=== PATIENT | male | born 1965 | race Caucasian/White ===

== ENCOUNTER 2017-10-08 13:40 | Inpatient (IN) | payer BC, MEDICAID ==
[~2017-10-08] VITALS: Ht 172.7 cm; Wt 101.6 kg
[~2017-10-08 13:40] MED LIST: NEBI5TAB3 PO; VALS1TAB40 PO
[2017-10-08 13:45] VITALS: BP_SYST 109
--- NOTE | 2017-10-08 13:52 | NUR ---
Pt placed to ER bed 8.
--- NOTE | 2017-10-08 13:55 | NUR ---
Pt AAOx4 ambulated into ED c/o pain and swelling to R hand s/p laceration on 3rd R digit while fixing car engine x2 days ago. Erythema and swelling noted to R hand. Pt denies taking any medications today. No other injuries/complaints per pt/noted. Will continue to monitor.
--- NOTE | 2017-10-08 13:58 | NUR ---
ER Dr. Salas at bedside examining patient.
[2017-10-08] MEDS ORDERED: cefTRIAXone 1 GM IVPB PREMIX 50 ML IV ONE (14:15)
[2017-10-08] MEDS ORDERED: VANCOMYCIN HCL 1,000 MG in NS 250 ML IV ONE (14:15)
[2017-10-08] MEDS ORDERED: VANCOMYCIN HCL 1000 MG/VIAL IV ONE (14:27)
[2017-10-08 14:46] LABS: BASOPHILS # (AUTO) 0.1 K/uL (0.0-0.2); BASOPHILS % (AUTO) 1.9 % (0.0-2.0); EOSINOPHILS # (AUTO) 0.2 K/uL (0.0-0.4); EOSINOPHILS % (AUTO) 3.6 % (0.0-4.0); HEMATOCRIT 42.6 % (36-54); HEMOGLOBIN 14.2 g/dL (14.0-18.0); LYMPHOCYTES % (AUTO) 31.7 % (20.5-51.5); MEAN CORPUSCULAR HEMOGLOBIN 31 pg (27-31); MEAN CORPUSCULAR HGB CONC 33 % (32-36); MEAN CORPUSCULAR VOLUME 92 fL (79.0-98.0); MONOCYTES # (AUTO) 1.1 K/uL (0.0-1.0); NEUTROPHILS % (AUTO) 45.8 % (40.0-70.0); RED BLOOD CELL COUNT(AUTO) 4.63 MIL/uL (4.2-6.2); RED CELL DISTRIBUTION WIDTH 15.8 % (9.0-15.0); WHITE BLOOD COUNT (AUTO) 6.4 K/uL (4.8-10.8)
[2017-10-08 14:51] LABS: PLATELET COUNT (AUTO) 250 K/uL (130-430)
[2017-10-08 14:55] LABS: CALCIUM 8.6 mg/dL (8.4-11.0); CREATININE 0.77 mg/dL (0.55-1.30); POTASSIUM 3.7 mmol/L (3.5-5.1)
[2017-10-08 15:02] LABS: ALBUMIN 3.4 g/dL (3.4-4.8); TOTAL BILIRUBIN 0.4 mg/dL (0.0-1.0)
--- NOTE | 2017-10-08 15:15 | NUR ---
Assumed care of patient for lunch relief
--- NOTE | 2017-10-08 16:20 | NUR ---
Patient will be admitted to care of [facility]. Admitted to Medsurg unit. Will go to room 117A. Belongings list completed. Summary report printed. Report will be given at bedside.
--- NOTE | 2017-10-08 16:24 | NUR ---
ADMISSION NOTE Received patient from ER via jacoby, received report from Graeme PERSON. Patient admitted with diagnosis of cellulitis. Patient oriented to hospital routine, call light, toileting and safety-patient verbalized understanding.
[2017-10-08 16:37] VITALS: BP_SYST 121
[2017-10-08] MEDS ORDERED: ceFAZolin SODIUM 1 GM in D5W 50 ML IV ONE (16:45)
--- NOTE | 2017-10-08 17:03 | NUR ---
CONSULTATION PAGED REASON FOR CONSULTATION: Cellulites PERSON NOTIFIED: Dr. Watson CONSULTING PHYSICIAN: Dr. Watson ORDERING PHYSICIAN: Dr. Nima Watson on the unit and was made aware of consult.
--- NOTE | 2017-10-08 17:28 | NUR ---
Assessment performed at this time. Dinner tray provided. Discussed plan of care with patient. Patient verbalized understanding.
--- NOTE | 2017-10-08 18:08 | NUR ---
Closing Note Patient walking around in room. No complaints of pain or difficulty breathing on room air. All needs met throughout shift. Will endorse plan of care to noc shift. Call light in reach, safety precautions in order and bed alarm refused by patient.
--- NOTE | 2017-10-08 19:15 | NUR ---
OPENING NOTE Received report from RAZA Byrnes. Patient resting in bed with eyes closed. Breathing unlabored and even on room air. No signs of distress, no needs at this time. Fall and safety precautions in place. Bed in lowest position, brake on, call light within reach. IV abx infusing as ordered. Will continue to monitor.
[2017-10-08 20:57] VITALS: BP_SYST 140
--- NOTE | 2017-10-08 21:00 | NUR ---
Patient placed on 2L oxygen via NC due to patient oxygen saturation at 89% on room air. Pt currently sating at 94% on 2L. Will continue to monitor.
[2017-10-08] MEDS: ceFAZolin SODIUM 1 GM in D5W 50 ML IV SCH (21:04)
--- NOTE | 2017-10-08 21:06 | NUR ---
IV abx hung
[2017-10-08] MEDS ORDERED: HYDROcodone/ACETAMIN 5-325 MG TAB (NORCO/ VICODIN) PO PRN (22:45)
[2017-10-08] MEDS ORDERED: LORazepam 2 MG/ML VIAL IVP PRN (22:45)
[2017-10-08] MEDS ORDERED: ONDANSETRON HCL 4 MG/2 ML VIAL IVP PRN (22:45)
--- NOTE | 2017-10-08 23:37 | NUR ---
Patient resting in bed with eyes closed. Breathing unlabored and even on room air. No signs of distress, no needs at this time. Fall and safety precautions in place. Bed in lowest position, brake on, call light within reach. Will continue to monitor Addendum: 10/09/17 at 0150 by Lupe Schneider RN Pt on 2L oxygen via NC, not RA
[2017-10-09 01:48] VITALS: BP_SYST 138
--- NOTE | 2017-10-09 01:49 | NUR ---
Patient resting in bed with eyes closed. Breathing unlabored and even on 2L oxygen via NC. No signs of distress, no needs at this time. Fall and safety precautions in place. Bed in lowest position, brake on, call light within reach. Will continue to monitor
[2017-10-09] MEDS: VANCOMYCIN HCL 1,500 MG in NS 250 ML IV SCH ×2 (02:33→15:44)
--- NOTE | 2017-10-09 02:35 | NUR ---
IV abx hung
[2017-10-09] MEDS: HYDROcodone/ACETAMIN 10-325 MG TAB PO PRN ×3 (04:42→19:40)
--- NOTE | 2017-10-09 04:43 | NUR ---
Pt c/o pain 10/10. Administered PRN norco PO as ordered. Educated pt on safety and side effects. Encouraged call for assist.
[2017-10-09] MEDS: ceFAZolin SODIUM 1 GM in D5W 50 ML IV SCH ×3 (05:08→22:52)
[2017-10-09] MEDS: NORMAL SALINE 5 ML DISP.SYRIN IVF SCH ×3 (05:12→22:51)
--- NOTE | 2017-10-09 05:12 | NUR ---
IV abx hung
[2017-10-09] MEDS ORDERED: NORMAL SALINE 5 ML DISP.SYRIN IVF SCH (06:00)
[2017-10-09 06:41] LABS: BASOPHILS # (AUTO) 0.1 K/uL (0.0-0.2); BASOPHILS % (AUTO) 1.9 % (0.0-2.0); EOSINOPHILS # (AUTO) 0.3 K/uL (0.0-0.4); EOSINOPHILS % (AUTO) 5.8 % (0.0-4.0); HEMATOCRIT 42.4 % (36-54); HEMOGLOBIN 14.3 g/dL (14.0-18.0); LYMPHOCYTES # (AUTO) 1.7 K/uL (1.0-5.5); LYMPHOCYTES % (AUTO) 28.8 % (20.5-51.5); MEAN CORPUSCULAR HEMOGLOBIN 31 pg (27-31); MEAN CORPUSCULAR HGB CONC 34 % (32-36); MEAN CORPUSCULAR VOLUME 92 fL (79.0-98.0); MONOCYTES % (AUTO) 16.9 % (1.7-9.3); NEUTROPHILS # (AUTO) 2.8 K/uL (1.8-7.7); NEUTROPHILS % (AUTO) 46.6 % (40.0-70.0); PLATELET COUNT (AUTO) 253 K/uL (130-430); RED BLOOD CELL COUNT(AUTO) 4.64 MIL/uL (4.2-6.2); RED CELL DISTRIBUTION WIDTH 15.6 % (9.0-15.0); WHITE BLOOD COUNT (AUTO) 5.9 K/uL (4.8-10.8)
[2017-10-09 06:52] LABS: C-REACTIVE PROTEIN QUANT 3.9 mg/dL (0-0.5); CALCIUM 8.4 mg/dL (8.4-11.0); CREATININE 0.79 mg/dL (0.55-1.30); POTASSIUM 3.8 mmol/L (3.5-5.1)
--- NOTE | 2017-10-09 06:52 | NUR ---
CLOSING NOTE Patient resting in bed awake, alert, oriented x4. Breathing unlabored and even on 2L oxygen via NC. No signs of distress, no needs at this time. All needs met throughout shift. Fall and safety precautions in place throughout shift. Bed in lowest position, brake on, call light within reach. Will endorse cares to day shift nurse.
[2017-10-09 08:00] VITALS: BP_SYST 157
--- NOTE | 2017-10-09 08:00 | NUR ---
Opening Note received report from brick pitcher RN, pt resting in bed, A&Ox4, respirations even and unlabored on room air, O2sat 95%, pain controlled at this time, IV site clean, dry, and intact, pt educated on use of call light and asked to call for assistance, pt verbalized understanding, call light in reach, pt educated on use of bed alarm for pt safety, pt refusing bed alarm at this time, bed in low position, fall and aspiration precautions in place.
[2017-10-09 08:18] LABS: ERYTHROCYTE SEDIMENTATION RATE 7 MM/HR (0-15)
[2017-10-09] MEDS: NEBIVOLOL HCL 5 MG TABLET PO SCH (08:59)
--- NOTE | 2017-10-09 08:59 | NUR ---
Pain Management/Medication pt complaint of pain 10/10 to right hand, pt educated on use and side effects of PRN pain medications and all medications, pt verbalized understanding, tolerated medication administration well, no additional needs at this time, fall and aspiration precautions in place.
[2017-10-09] MEDS ORDERED: VALSARTAN PO SCH (09:00)
[2017-10-09] MEDS ORDERED: HYDROCHLOROTHIAZIDE PO SCH (09:00)
[2017-10-09] MEDS: HYDROCHLOROTHIAZIDE 12.5 MG CAPSULE (HCTZ) PO SCH (09:00)
[2017-10-09] MEDS: VALSARTAN 160 MG TABLET (DIOVAN) PO SCH (09:00)
[2017-10-09] MEDS ORDERED: [UNRECOGNIZED DRUG - OTHER] PO SCH (09:00)
--- NOTE | 2017-10-09 10:50 | NUR ---
RN Rounds pt resting in bed, pt reports pain controlled at this time, respirations even and unlabored on room air, no additional needs, fall and aspiration precautions in place.
--- NOTE | 2017-10-09 12:40 | NUR ---
RN Rounds pt resting in bed, respirations even and unlabored on room air, pain controlled at this time, fall and aspiration precautions in place.
[2017-10-09 12:49] VITALS: BP_SYST 149
--- NOTE | 2017-10-09 13:50 | NUR ---
Spoke with MD Spoke with Dr. Herring, informed MD that pt is requesting to go home, no orders for discharge per MD, pt informed of plan of care, pt verbalized understanding.
--- NOTE | 2017-10-09 14:36 | NUR ---
Medication pt educated on medication use and side effects, pt verbalized understanding, tolerating medication administration well, no redness or swelling noted at IV site, no additional needs at this time, fall and aspiration precautions in place.
--- NOTE | 2017-10-09 15:47 | NUR ---
Medication pt educated on medication use and side effects, pt verbalized understanding, tolerated medication administration well, no additional needs at this time, fall and aspiration precautions in place.
[2017-10-09 16:39] VITALS: BP_SYST 146
--- NOTE | 2017-10-09 17:10 | NUR ---
RN Rounds pt resting in bed, respirations even and unlabored, no acute distress noted, pt states that pain is controlled at this time, fall and aspiration precautions in place.
--- NOTE | 2017-10-09 19:05 | NUR ---
Closing note pt resting in bed, A&Ox4, respirations even and unlabored on room air, IV site clean, dry, and intact, pt complaint of pain at this time, fast food shift supervisor RN to give pain medications, pt educated on use of call light and asked to call for assistance, pt verbalized understanding, call light in reach, pt educted on use of bed alarm for pt safety, pt refusing bed alarm at this time, bed in low position, fall and aspiration precautions in place, care endorsed to fast food shift supervisor RN.
--- NOTE | 2017-10-09 19:10 | NUR ---
OPENING NOTE Received report from RAZA Cintron. Patient resting in bed awake, alert, oriented x4. Breathing unlabored and even on room air. Fall and safety precautions in place. Bed in lowest position, brake on, call light within reach. IV site saline locked. No visual improvement of patient's right hand redness and swelling. Pt c/o pain at this time. Will continue to monitor.
--- NOTE | 2017-10-09 19:40 | NUR ---
Pt c/o pain 12/10. Administered PRN Trent 10-325 PO as ordered. Educated pt on safety and side effects. Encouraged call for assist.
[2017-10-09 20:09] VITALS: BP_SYST 149
--- NOTE | 2017-10-09 20:17 | NUR ---
Patient's sister Carmen called. Gave her an update on patient's current status. Transferred call to patient.
[2017-10-09] MEDS: ACETAMINOPHEN 325 MG TABLET PO PRN (22:57)
--- NOTE | 2017-10-09 23:04 | NUR ---
IV abx hung. Pt c/o pain. Administered PRN tylenol PO as ordered.
[2017-10-10 00:50] VITALS: BP_SYST 153
--- NOTE | 2017-10-10 01:03 | NUR ---
Patient resting in bed with eyes closed. Breathing unlabored and even on room air. Fall and safety precautions in place. Bed in lowest position, brake on, call light within reach. Will continue to monitor.
[2017-10-10] MEDS: VANCOMYCIN HCL 1,500 MG in NS 250 ML IV SCH ×2 (03:22→14:36)
--- NOTE | 2017-10-10 03:26 | NUR ---
IV abx hung
[2017-10-10] MEDS: ceFAZolin SODIUM 1 GM in D5W 50 ML IV SCH ×2 (05:26→13:12)
[2017-10-10] MEDS: NORMAL SALINE 5 ML DISP.SYRIN IVF SCH ×2 (05:28→13:14)
--- NOTE | 2017-10-10 05:28 | NUR ---
IV abx hung
--- NOTE | 2017-10-10 05:34 | NUR ---
MRSA chanell nares swab collected, per order, per Dr. Hall's notes. Sent to lab.
[2017-10-10 06:46] LABS: CALCIUM 8.6 mg/dL (8.4-11.0); CREATININE 0.96 mg/dL (0.55-1.30); POTASSIUM 3.5 mmol/L (3.5-5.1)
[2017-10-10 07:04] LABS: HEMOGLOBIN 14.7 g/dL (14.0-18.0)
--- NOTE | 2017-10-10 07:08 | NUR ---
CLOSING NOTE Patient resting in bed awake, alert, oriented x4. Breathing unlabored and even on room air. No signs of distress, no needs at this time. All needs met throughout shift. Fall and safety precautions in place throughout shift. Bed in lowest position, brake on, call light within reach. IV site saline locked. Endorsed care to day shift nurseTiesha.
[2017-10-10 07:17] LABS: HEMATOCRIT 43.4 % (36-54); MEAN CORPUSCULAR HEMOGLOBIN 31 pg (27-31); MEAN CORPUSCULAR HGB CONC 34 % (32-36); MEAN CORPUSCULAR VOLUME 90 fL (79.0-98.0); PLATELET COUNT (AUTO) 266 K/uL (130-430); RED CELL DISTRIBUTION WIDTH 15.1 % (9.0-15.0); WHITE BLOOD COUNT (AUTO) 7.9 K/uL (4.8-10.8)
[2017-10-10 07:20] LABS: C-REACTIVE PROTEIN QUANT 14.4 mg/dL (0-0.5)
--- NOTE | 2017-10-10 07:55 | NUR ---
Initial note Pt sitting up in bed, awake, alert and oriented x4, no s/s of acute distress or pain, vss. Breathing even and unlabored on room air. IV to lac 20 g intact, saline locked. Swelling and redness noted to right hand, centered around right 3rd finger and thumb, warm to touch. Right foot swelling and redness noted, centered around big toe. Pt states he would like pain medication, He states " Tylenol will do because [place] is not helping the pain" will notify MD when he make rounds. Plan of care discussed, safety precautions in place, call light within reach, will follow up
[2017-10-10 07:58] LABS: ERYTHROCYTE SEDIMENTATION RATE 10 MM/HR (0-15)
[2017-10-10 08:00] VITALS: BP_SYST 149
[2017-10-10] MEDS: VALSARTAN 160 MG TABLET (DIOVAN) PO SCH (08:11)
[2017-10-10] MEDS: HYDROCHLOROTHIAZIDE 12.5 MG CAPSULE (HCTZ) PO SCH (08:11)
[2017-10-10] MEDS: ACETAMINOPHEN 325 MG TABLET PO PRN (08:12)
[2017-10-10] MEDS: NEBIVOLOL HCL 5 MG TABLET PO SCH (08:12)
[2017-10-10 09:00] LABS: BAND % (MANUAL) 5 % (0-6)
[2017-10-10 09:01] LABS: BASOPHILS % (MANUAL) 0 % (0-2); EOSINOPHILS % (MANUAL) 1 % (0-7); LYMPHOCYTES % (MANUAL) 17 % (20-46); MONOCYTES % (MANUAL) 9 % (0-11)
--- NOTE | 2017-10-10 10:00 | NUR ---
Rounds pt sitting in bed, watching tv, no s/s of acute distress or pain at this time. Pt denies any needs, awaiting mds to make rounds, call light within reach, will follow up
--- NOTE | 2017-10-10 11:47 | NUR ---
Rounds pt laying in bed, watching tv, pt states he is feeling a little discomfort to his right elbow now, he wonders if maybe the infection is spreading, elbow assessed, slight redness noted, not very distinguishable, no warmth felt, will updated md when he makes rounds. call light within reach, will follow up
[2017-10-10 12:15] VITALS: BP_SYST 142
[2017-10-10] MEDS: HYDROcodone/ACETAMIN 10-325 MG TAB PO PRN (13:13)
--- NOTE | 2017-10-10 13:43 | NUR ---
Pain Management pt states pain to right hand is 8/10, noted more swelling to 3rd finger, swelling was closer to knuckle now the finger nail is swollen and red at joint, hand swelling increased, hand elevated on pillow, ice pack placed in hand, will follow for pain management, call light within reach.
[2017-10-10 16:15] VITALS: BP_SYST 152
--- NOTE | 2017-10-10 16:20 | NUR ---
DR FLORES AT BEDSIDE, PT ASSESSED, MADE AWARE OF INCREASED SWELLING AND REDNESS NOTED, PER MD HE DOES NOT BELIEVE IT IS CELLULITIS BUT RAHTER PSEUDO GOUT, PT EDUCATED BY MD REGARDING NEW POSSIBLE DIAGNOSIS. DR REIS CALLED BACK, MADE AWARE OF DR FLORES'S ASSESSMENT, NEW ORDER FOR PAIN MANAGEMENT RECEIVED AND DVT PROPHYLAXIS DUE TO PREVIOUS HIS TORY OF DVT. PATIENT EDUCATED ON PLAN OF CARE, WILL FOLLOW UP
[2017-10-10] MEDS ORDERED: IBUPROFEN 600 MG TABLET PO PRN (16:30)
[2017-10-10] MEDS ORDERED: ENOXAPARIN SODIUM 40 MG/0.4 ML SYRINGE SUBCUT SCH (16:30)
[2017-10-10] MEDS ORDERED: OXYCODONE/ACETAMINOPHEN 5-325 TABLET PO PRN (16:30)
--- NOTE | 2017-10-10 18:00 | NUR ---
DR REIS SPOKE WITH PATIENT, DISCHARGE ORDER RECEIVED, PT AWARE AND VERBALIZED AGREEMENT, PT EDUCATED REGARDING DISCHARGE INSTRUCTIONS WILL START DISCHARGE PROCESS
[2017-10-10] MEDS ORDERED: OXYC-128 PO (18:11)
[2017-10-10 18:22] VITALS: BP_SYST 153
[2017-10-10] MEDS ORDERED: CLIN300C11 PO (18:30)
--- NOTE | 2017-10-10 19:01 | NUR ---
DISCHARGE DISCHARGE EDUCATION PROVIDED. PT GIVEN PRESCRIPTION FOR CLINDAMYCIN AND PERCOCET, PT EDUCATED REGARDING FOLLOW UP CARE, PT TO FOLLOW UP WITH PCP NEXT WEEK. PT VERBALIZED UNDERSTANDING, IV SITE REMOVED, NO ACTIVE BLEEDING NOTED. PT ACCOMPANIED OUT TO CAR, ABLE TO AMBULATE WITHOUT ASSISTANCE, BELONGINGS DISCHARGED WITH PATIENT.
[2017-10-11] MEDS ORDERED: VANCOMYCIN HCL 1,250 MG in NS 250 ML IV SCH ×2
== END 2017-10-10 19:00 | disposition home or self-care (01) | DRG 351 ==
LOC: SED 13:40 → SMU 16:03
PROVIDERS: ADMIT Preventive Medicine Preventive Medicine/Occupational Environmental Medicine; ATTEND Preventive Medicine Preventive Medicine/Occupational Environmental Medicine
DX: M19.041 Primary osteoarthritis, right hand (principal); I10 Essential (primary) hypertension; L03.113 Cellulitis of right upper limb; L02.511 Cutaneous abscess of right hand; M19.90 Unspecified osteoarthritis, unspecified site; M11.20 Other chondrocalcinosis, unspecified site; F10.10 Alcohol abuse, uncomplicated; L03.011 Cellulitis of right finger; F17.210 Nicotine dependence, cigarettes, uncomplicated; Z91.018 Allergy to other foods; Z79.899 Other long term (current) drug therapy
CPT/HCPCS: 36415; 80048; 80053; 80202-TC; 85007; 85025; 85027; 85651-TC; 86140; 87040-TC; 87081; 96365; 96366; 96368; 99285; J0690; J0696; J1650; J3370; J7050; J7060